=== PATIENT | male | born 1985 | race Two or more races ===

== ENCOUNTER 2021-09-28 16:30 | Emergency (ER) | payer SELFPAY ==
[~2021-09-28] VITALS: Ht 190.5 cm; Wt 136.1 kg
[2021-09-28 16:36] VITALS: BP 150/109
[2021-09-28] MEDS: ACETAMINOPHEN 325 MG TAB PO ONE (16:52)
== END 2021-09-28 21:35 | disposition left against medical advice (07) ==
LOC: ER 16:30 → EDBD 16:30 → ER 21:34
DX: U07.1 COVID-19 (principal); R05.9 Cough, unspecified; M79.10 Myalgia, unspecified site
CPT/HCPCS: 71046